=== PATIENT | female | born 1945 | race Caucasian/White ===

== ENCOUNTER → 2023-12-11 10:31 | Outpatient (CLI) | payer MEDICARE, SELFPAY ==
--- NOTE | ~2023-12-11 | DEXA_ITS ---
Bone Density Report Name: REMI BATRES Age: 78 Sex: Female Ethnicity: White Date of : 1945 Indication: postmenopausal osteoporosis; monitoring treatment; height loss; prior fracture; Referring Provider: Linda Duval Study: Bone densitometry was performed. Exam Date: December 11, 2023 Accession number: [id number] Bone Density: Region BMD T-score Z-score Classification AP Spine (L1-L4) 0.627 -3.8 -1.3 Osteoporosis Femoral Neck (Left) 0.497 -3.2 -1.0 Osteoporosis Total Hip (Left) 0.595 -2.8 -0.9 Osteoporosis Femoral Neck (Right) 0.544 -2.8 -0.5 Osteoporosis Total Hip (Right) 0.655 -2.4 -0.4 Osteopenia Total Hip Mean 0.625 -2.6 -0.7 Osteoporosis World Health Organization criteria for BMD impression classify patients as: Normal (T-score at or above -1.0), Osteopenia (T-score between -1.0 and -2.5), or Osteoporosis (T-score at or below -2.5). 10-year Fracture Risk: FRAX not reported because: Some T-score for Spine Total or Hip Total or Femoral Neck at or below -2.5 Treated for osteoporosis Previous Exams: Region Exam Age BMD T-score BMD Change BMD Change Date g/cm2 vs Baseline vs Previous AP Spine(L1-L4) 12/11/2023 78 0.627 -3.8 -0.020 -0.020 12/26/2016 71 0.647 -3.6 Total Hip(Left) 12/11/2023 78 0.595 -2.8 -0.072* -0.072* 12/26/2016 71 0.667 -2.3 Total Hip(Right) 12/11/2023 78 0.655 -2.4 -0.064* -0.064* 12/26/2016 71 0.718 -1.8 *Denotes significance at 95% confidence level, LSC for AP Spine = 0.022 g/cm2, LSC for Total Hip = 0.027 g/cm2 Clinical Information Provided by Patient: Has had a low trauma fracture Is being treated for osteoporosis Has used the following medications: Fosamax (i.e. alendronate) Patient maximum height was 59.5 Menopause Age: 56 No regular weight bearing exercise Does not regularly consume dairy products Drinks caffeinated beverages Onset of menses at age 15.5 Number of children 2 Impression: The patient has established osteoporosis, based on the Total Spine T-score and the existence of a prior fracture. The patient has risk factors, including: previous fracture. The BMD for the Total Hip(Left) decreased, changing by -0.072 since the last DXA exam. The BMD for the Total Hip(Right) decreased, changing by -0.064 since the last DXA exam. Discussion: SIGNIFICANT BONE LOSS OBSERVED. Adherence to therapy (including calcium and vitamin D intake) should be ass
== END ==
PROVIDERS: PCP Clinical Nurse Specialist; Visit Provider Clinical Nurse Specialist
DX: M81.0 Age-related osteoporosis without current pathological fracture (principal)
CPT/HCPCS: 77080